=== PATIENT | female | born 1955 | race Caucasian/White ===

== ENCOUNTER → 2017-10-24 | Day surgery (SDC) | payer OTHER ==
[2017-10-11 09:37] VITALS: BMI 29.0
--- NOTE | 2017-10-11 10:15 | PAT Medication Instructions ---
Service Date Oct 11, 2017. Current Home Medication List Aspirin (Aspirin Ec), 81 MG PO QAM Baclofen (Lioresal), 10 MG PO UD PRN for PRN Calcium Carbonate-Vitamin D (Calcium + D3 600-200 mg-Unit), Unknown Dose PO BID Clopidogrel (Plavix), 75 MG PO QAM Cyanocobalamin (B12), 1 TAB PO QAM Docusate Sodium (Stool Softener), 50 MG PO HS Famotidine (Pepcid), 20 MG PO UD PRN for PRN Fish Oil (Hiko-3), 1 CAP PO BID Melatonin (Melatonin Maximum Strengt), 10 MG PO HS Multivitamin (Multivitamin), 1 TAB PO QAM Pantoprazole (Protonix), 40 MG PO QAM Polyethylene Glycol 3350 (Miralax), 17 GM PO QAM Pravastatin (Pravachol ), 20 MG PO QDD Risedronate Sodium (Atelvia), 1 TAB PO WK Sertraline (Zoloft), 100 MG PO HS Tramadol (Ultram), 1 TAB PO UD PRN for Pain Medication Instructions For Your Scheduled Surgery -Follow your instructions from your fish fryer and surgeon for (OK to hold x 7 days per cardio, last dose Monday 10/16): Aspirin (Aspirin Ec), 81 MG PO QAM Clopidogrel (Plavix), 75 MG PO QAM -Continue as directed: Risedronate Sodium (Atelvia), 1 TAB PO WK - Hold the following medications 2 weeks prior to surgery: Fish Oil (Hiko-3), 1 CAP PO BID - Hold the following medications the morning of surgery: Baclofen (Lioresal), 10 MG PO UD PRN for PRN Calcium Carbonate-Vitamin D (Calcium + D3 600-200 mg-Unit), Unknown Dose PO BID Cyanocobalamin (B12), 1 TAB PO QAM Multivitamin (Multivitamin), 1 TAB PO QAM Polyethylene Glycol 3350 (Miralax), 17 GM PO QAM - Take the following medications the morning of surgery with a sip of water: Famotidine (Pepcid), 20 MG PO UD PRN for PRN (if needed) Pantoprazole (Protonix), 40 MG PO QAM Tramadol (Ultram), 1 TAB PO UD PRN for Pain (if needed, can be taken up to four hours before surgery) - Take the following medications as scheduled the night before surgery: Baclofen (Lioresal), 10 MG PO UD PRN for PRN (if needed) Calcium Carbonate-Vitamin D (Calcium + D3 600-200 mg-Unit), Unknown Dose PO BID Docusate Sodium (Stool Softener), 50 MG PO HS Famotidine (Pepcid), 20 MG PO UD PRN for PRN (if needed) Melatonin (Melatonin Maximum Strengt), 10 MG PO HS Pravastatin (Pravachol ), 20 MG PO QDD Sertraline (Zoloft), 100 MG PO HS Tramadol (Ultram), 1 TAB PO UD PRN for Pain (if needed) If you have any questions please call us at [phone] or [phone] or [phone]
--- NOTE | 2017-10-11 10:51 | DIAGNOSTIC IMAGING REPORT ---
CHEST 2 VIEWS ROUTINE CLINICAL HISTORY: 62 years-old Female presenting with preoperative assessment. TECHNIQUE: PA and lateral views of the chest were obtained. COMPARISON: None. FINDINGS: Atherosclerosis of the aortic arch. Cardiac silhouette normal in size. Lungs and pleural spaces clear. Degenerative changes of the thoracic spine. Mild anterior wedging deformity of one of the lower thoracic and one of the upper lumbar vertebral bodies. Exaggerated thoracic kyphosis. Upper abdomen normal. IMPRESSION: 1. No acute cardiopulmonary disease. 2. Age-indeterminate compression deformities of one of the lower thoracic and one of the upper lumbar vertebral bodies, which raises concern for underlying osteopenia. Electronically signed by: Leroy Peck M.D. 10/11/2017 10:50 AM Dictated Date/Time: 10/11/2017 10:48 AM
[2017-10-11 11:30] LABS: BASO % 0.4 %; BASO ABS # 0.02 K/uL (0-0.2); EOS % 1.2 %; EOS ABS # 0.06 K/uL (0-0.5); HEMATOCRIT 41.9 % (37-47); HEMOGLOBIN 13.8 g/dL (12.0-16.0); IG# 0.01 K/uL (0.00-0.02); LYMPH % 34.8 %; LYMPH ABS # 1.77 K/uL (1.2-3.4); MEAN CELL VOLUME 91.7 fL (80-100); MEAN CORPUSCULAR HEMOGLOBIN 30.2 pg (25-34); MEAN CORPUSCULAR HGB CONC 32.9 g/dl (32-36); MEAN PLATELET VOLUME 11.2 fL (7.4-10.4); MONO % 7.7 %; MONO ABS # 0.39 K/uL (0.11-0.59); NEUT % 55.7 %; NEUT ABS # 2.83 K/uL (1.4-6.5); PLATELET COUNT 187 K/uL (130-400); RED CELL DISTRIBUTION WIDTH CV 12.6 % (11.5-14.5); RED CELL DISTRIBUTION WIDTH SD 42.4 fL (36.4-46.3); WHITE BLOOD COUNT 5.08 K/uL (4.8-10.8)
[2017-10-11 11:35] LABS: CALCIUM 9.3 mg/dl (8.5-10.1); CREATININE 0.76 mg/dl (0.60-1.20); POTASSIUM 3.9 mmol/L (3.5-5.1)
[~2017-10-24] VITALS: Ht 162.6 cm; Wt 77.2 kg
[~2017-10-24] MED LIST: ACETAMINOPHEN 325 MG TAB PO PRN; ACETAMINOPHEN 500 MG TAB PO SCH; ASPI81TA28 PO; ATROPINE SULFATE 0.1 MG/ML 5ML SYR IV PRN; BACL10TA PO; BUPIVACAINE/EPINEPHRINE 0.5% MPF 1:200,000 30 ML VIAL ONE; CALC-388 PO; CEFAZOLIN 1000MG IV PUSH 7.5 ML IV SCH; CHECK SCOPOLAMINE PATCH PLACEMENT SCH; CLOP1TAB15 PO; CONRAY 60% 50 ML VIAL ONE; CYAN100073 PO; CeleBREX 200 MG CAP PO SCH; DEXAMETHASONE SOD INJ 4 MG/ML VIAL ONE; DOCU100C PO; EpHEDrine SULFATE INJ 50 MG/ML AMP IV PRN; FAMO20TA11 PO; FENTANYL CITRATE INJ 50 MCG/1 ML 2 ML VIAL IV PRN; FENTANYL CITRATE INJ 50 MCG/1 ML 2 ML VIAL ONE; GABAPENTIN 600 MG PO SCH; GLYCOPYRROLATE INJ 0.2 MG/ML VIAL ONE; HYDROmorphone INJ 1 MG/ML SYR IV PRN; HYDROmorphone INJ 2 MG/ML SYR/VIAL ONE; KETOROLAC TROMETHAMINE 30 MG/ML VIAL IV. PRN; LACTATED RINGER'S 1000ML 1,000 ML IV SCH; LIDOCAINE HCL 2% 2 ML VIAL (20MG/ML) ONE; MELATAB2 PO; MIDAZOLAM HCL 1 MG/ML 2ML VIAL ONE; MULT-506 PO; NEOSTIGMINE METHYLSULFATE 1 MG/ML 10ML VIAL ONE; OMEG10007 PO; ONDANSETRON INJ 2 MG/ML 2 ML VIAL IV PRN; ONDANSETRON INJ 2 MG/ML 2 ML VIAL ONE; PANT40TA PO; PHENYLEPHRINE 100MCG/ML 5ML SYR IV PRN; POLY335019 PO; PRAV20TA PO; PROPOFOL IV EMULSION 10 MG/ML 20 ML VIAL IV ONE; RISETAB3 PO; ROCURONIUM BROMIDE 10 MG/ML 5 ML VIAL IV ONE; SCOPOLAMINE 1.5 MG TDSY TD ONE; SCOPOLAMINE 1.5 MG TDSY TD SCH; SERT-234 PO; TRAM-10 PO
[2017-10-24 11:10] VITALS: BP 168/83; PULSE 62; TEMP 36.7; O2SAT 99; Ht 162.6 cm; Wt 77.2 kg
--- NOTE | 2017-10-24 13:15 | History & Physical Bridge Note ---
H&P Re-Evaluation Bridge Note: I have examined the patient, reviewed the History & Physical and in the interval since the performance of the History & Physical I have noted the following changes of clinical significance: No changes noted
--- NOTE | 2017-10-24 13:16 | History and Physical ---
History & Physical Date Oct 24, 2017. Chief Complaint Back pain History of Present Illness The patient is a 62 year old female with complaints of back pain Additional History Hepatic Disease: No Endocrine Disorder: No Kidney Disease: No Hypertension: No Heart Disease: No Bleeding Tendencies: No Infectious Diseases: No Allergies Coded Allergies: Codeine (Verified Adverse Reaction, Unknown, VOMIT, 10/24/17) Hydrocodone (Verified Adverse Reaction, Unknown, VOMIT, 10/24/17) Oxycodone (Verified Adverse Reaction, Unknown, VOMIT, 10/24/17) Home Medications Scheduled Aspirin (Aspirin Ec), 81 MG PO QAM Calcium Carbonate-Vitamin D (Calcium + D3 600-200 mg-Unit), Unknown Dose PO BID Clopidogrel (Plavix), 75 MG PO QAM Cyanocobalamin (B12), 1 TAB PO QAM Docusate Sodium (Stool Softener), 50 MG PO HS Fish Oil ([place]-3), 1 CAP PO BID Melatonin (Melatonin Maximum Strengt), 10 MG PO HS Multivitamin (Multivitamin), 1 TAB PO QAM Pantoprazole (Protonix), 40 MG PO QAM Polyethylene Glycol 3350 (Miralax), 17 GM PO QAM Pravastatin (Pravachol ), 20 MG PO QPM Risedronate Sodium (Atelvia), 1 TAB PO WK Sertraline (Zoloft), 100 MG PO HS Scheduled PRN Baclofen (Lioresal), 10 MG PO UD PRN for PRN Famotidine (Pepcid), 20 MG PO UD PRN for PRN Tramadol (Ultram), 1 TAB PO UD PRN for Pain Physical Examination Skin: warm/dry, no rash Eyes: normal inspection, EOMI, sclerae normal ENT: normal ENT inspection, pharynx normal Head: normocephalic, atraumatic Neck: supple, no adenopathy, trachea midline Respiratory/Chest: lungs clear, normal breath sounds, no respiratory distress Cardiovascular: regular rate, rhythm, no edema, no murmur Abdomen / GI: normal bowel sounds, non tender Back: normal inspection Extremities: normal inspection, normal range of motion Neurologic/Psych: no motor/sensory deficits, alert, normal reflexes, oriented x 3 Diagnosis L1 compression fracture Plan of Treatment Biopsy with kyphoplasty L1
--- NOTE | 2017-10-24 14:27 | [facility] Operative Report ---
Operative Report Operative Date Oct 24, 2017. Pre-Operative Diagnosis L1 Compression Fracture Post-Operative Diagnosis Same Procedure(s) Performed 1. Kyphoplasty L1 vertebral body. #2 biopsy of L1 vertebral body. Surgeon Dr. Mckeon Stamp Pad Finisher Surgeon(s) none Estimated Blood Loss 2 cc Specimens A: L1 vertebral body Description of Procedure Patient was met with preoperatively case discussed all questions addressed. After informed consent obtained patient was taken to the operative suite underwent intubation and placed in a prone position on the Michael table with chest pad and hip bolsters. All bony prominences were well-padded eyes inspected to ensure no external pressure placed upon them. This point the thoracolumbar spine was prepped and draped in the normal sterile fashion with the assistance of fluoroscopy in AP and lateral planes identified the L1 vertebral body. 2 small incisions were placed just lateral to the L1 vertebral pedicles. I passed to Kyphon working cannulas by way of a transpedicular approach into the L1 vertebral body tear. 2 core biopsies were obtained. I then inserted 20 mm Kyphon balloons and sequentially inflated them. These were subsequently removed and approximately 3 cc of Kyphon cement injected with fluoroscopic visualization. It demonstrated excellent interdigitation to the bone. After this complete working cannulas were removed the small incisions closed with subcutaneous Monocryl and a sterile dressing placed. Patient will continue PACU stable condition. I attest to the content of the Intraoperative Record and any orders documented therein. Any exceptions are noted below.
--- NOTE | 2017-10-24 14:30 | Discharge Instructions ---
Discharge Instructions Date of Service Oct 24, 2017. Admission Reason for Admission: Wedge Compression Fracture Of 1ST Lumbar Vertebra Discharge Discharge Diagnosis / Problem: compression fx Discharge Goals Goal(s): Decrease discomfort Activity Recommendations Activity Limitations: as noted below Lifting Limitations: no more than 5 pounds Exercise/Sports Limitations: gradually increase as tolerated Shower/Bathe: tomorrow Driving or Machine Use: resume 3 days after discharge . Current Hospital Diet Patient's current hospital diet: Discharge Diet Recommended Diet: Regular Diet Procedures Procedures Performed: 1. Kyphoplasty L1 vertebral body. #2 biopsy of L1 vertebral body. Pending Studies Studies pending at discharge: no Medical Emergencies . Who to Call and When: Medical Emergencies: If at any time you feel your situation is an emergency, please call 911 immediately. . Non-Emergent Contact Non-Emergency issues call your: Primary Care Provider . "Provider Documentation" section prepared by Sim Mckeon. .
--- NOTE | 2017-10-24 14:40 | DIAGNOSTIC IMAGING REPORT ---
LUMBAR SPINE 2 OR 3 VIEW CLINICAL HISTORY: 62 years-old Female presenting with L1 KYPHOPLASTY. TECHNIQUE: 2 fluoroscopic image(s) recorded as part of an intraoperative procedure. COMPARISON: None. FINDINGS/IMPRESSION: Anterior compression deformity of L1. Radiodense material consistent with kyphoplasty changes. No gross retropulsion of fracture fragments. Please see surgical report for further details. Fluoroscopy dosage (mGy): 109.91. Fluoroscopy time: 113.4 seconds. Number of fluoroscopic spot images: 0. Electronically signed by: Leroy Peck M.D. 10/24/2017 2:38 PM Dictated Date/Time: 10/24/2017 2:37 PM
--- NOTE | 2017-10-24 15:06 | Anesthesiology Progress Note ---
Anesthesia Post Op Note Date & Time Oct 24, 2017 at 15:06 Vital Signs Pain Intensity: 0 Vital Signs Past 12 Hours Date Time Temp Pulse Resp B/P (MAP) Pulse Ox O2 Delivery O2 Flow Rate FiO2 10/24/17 14:55 78 18 145/78 100 Oxymask 10 10/24/17 14:45 80 18 149/73 100 Oxymask 10 10/24/17 14:38 36.4 90 18 159/79 100 Oxymask 10 10/24/17 11:10 36.7 62 18 168/83 (111) 99 Room Air Notes Mental Status: alert / awake / arousable, participated in evaluation Pt Amnestic to Procedure: Yes Nausea / Vomiting: adequately controlled Pain: adequately controlled Airway Patency, RR, SpO2: stable & adequate BP & HR: stable & adequate Hydration State: stable & adequate Anesthetic Complications: no major complications apparent
[2017-10-24 15:20] VITALS: BP 131/66; PULSE 81; TEMP 36.7; O2SAT 92
[2017-10-24 15:50] VITALS: BP 127/61; PULSE 77; TEMP 37.1; O2SAT 92
[2017-10-24 16:20] VITALS: BP 136/63; PULSE 71; TEMP 36.8; O2SAT 93
== END | disposition home or self-care (01) ==
LOC: C.ACU 10:51
PROVIDERS: ATTEND Orthopaedic Surgery Orthopaedic Surgery of the Spine
DX: S32.010A Wedge compression fracture of first lumbar vertebra, initial encounter for closed fracture (principal); M54.5 Low back pain; Z88.5 Allergy status to narcotic agent; Z79.82 Long term (current) use of aspirin; Z79.02 Long term (current) use of antithrombotics/antiplatelets; Z79.899 Other long term (current) drug therapy; X58.XXXA Exposure to other specified factors, initial encounter; Z90.49 Acquired absence of other specified parts of digestive tract; Z87.81 Personal history of (healed) traumatic fracture; E78.5 Hyperlipidemia, unspecified; K21.9 Gastro-esophageal reflux disease without esophagitis; Z86.73 Personal history of transient ischemic attack (TIA), and cerebral infarction without residual deficits; M41.9 Scoliosis, unspecified; Q60.0 Renal agenesis, unilateral; F41.9 Anxiety disorder, unspecified; F32.9 Major depressive disorder, single episode, unspecified

== ENCOUNTER → 2018-02-28 | Day surgery (SDC) | payer OTHER ==
[2018-02-27 08:11] VITALS: BMI 31.0
[~2018-02-28] VITALS: Ht 162.6 cm; Wt 82.3 kg
[~2018-02-28] MED LIST changes: -ATROPINE SULFATE 0.1 MG/ML 5ML SYR IV PRN; +BACITRACIN 50000 UNIT VIAL ONE; -BACL10TA PO; -CEFAZOLIN 1000MG IV PUSH 7.5 ML IV SCH; +CEFAZOLIN 2000MG IV PUSH 15 ML IV SCH; -CHECK SCOPOLAMINE PATCH PLACEMENT SCH; -CONRAY 60% 50 ML VIAL ONE; +CYCL10TA7 PO; +CYM/30 PO; +DEXAMETHASONE 4 MG TAB PO SCH; +ESMOLOL HCL 10 MG/ML 10 ML VIAL ONE; +EpHEDrine SULFATE 50MG/5ML SYR ONE; -EpHEDrine SULFATE INJ 50 MG/ML AMP IV PRN; -FENTANYL CITRATE INJ 50 MCG/1 ML 2 ML VIAL IV PRN; +KETOROLAC TROMETHAMINE 30 MG/ML VIAL ONE; +LARYING-O-JET KIT (LTA) ONE; +METH-445 PO; -ONDANSETRON INJ 2 MG/ML 2 ML VIAL IV PRN; -PHENYLEPHRINE 100MCG/ML 5ML SYR IV PRN; -PROPOFOL IV EMULSION 10 MG/ML 20 ML VIAL IV ONE; +PROPOFOL IV EMULSION 10 MG/ML 20 ML VIAL ONE; +RANITIDINE HCL 25 MG/ML INJ ONE; -ROCURONIUM BROMIDE 10 MG/ML 5 ML VIAL IV ONE; +ROCURONIUM BROMIDE 10 MG/ML 5 ML VIAL ONE; -SCOPOLAMINE 1.5 MG TDSY TD SCH; -SERT-234 PO
[2018-02-28 08:31] VITALS: BP 169/91; PULSE 63; TEMP 36.6; O2SAT 99; Ht 162.6 cm; Wt 82.3 kg
[2018-02-28 08:34] LABS: HEMATOCRIT 41.1 % (37-47); HEMOGLOBIN 14.3 g/dL (12.0-16.0); MEAN CELL VOLUME 91.7 fL (80-100); MEAN CORPUSCULAR HEMOGLOBIN 31.9 pg (25-34); MEAN PLATELET VOLUME 10.3 fL (7.4-10.4); PLATELET COUNT 154 K/uL (130-400); RED CELL DISTRIBUTION WIDTH CV 12.6 % (11.5-14.5); RED CELL DISTRIBUTION WIDTH SD 42.4 fL (36.4-46.3); WHITE BLOOD COUNT 4.84 K/uL (4.8-10.8)
[2018-02-28 08:37] LABS: MEAN CORPUSCULAR HGB CONC 34.8 g/dl (32-36)
[2018-02-28 08:43] LABS: PTT PATIENT 25.7 SECONDS (21.0-31.0)
--- NOTE | 2018-02-28 10:29 | History and Physical ---
History & Physical Date Feb 28, 2018. Chief Complaint Right SI joint pain History of Present Illness The patient is a 62 year old female with complaints of right SI joint pain Additional History Hepatic Disease: No Endocrine Disorder: No Kidney Disease: No Hypertension: No Heart Disease: No Bleeding Tendencies: No Infectious Diseases: No Other: Atrial fibrillation, depression, heart murmur, hypercholesterolemia, history of stroke, Allergies Coded Allergies: Codeine (Verified Adverse Reaction, Unknown, VOMIT, 02/28/18) Hydrocodone (Verified Adverse Reaction, Unknown, VOMIT, 02/28/18) Oxycodone (Verified Adverse Reaction, Unknown, VOMIT, 02/28/18) Home Medications Scheduled Aspirin (Aspirin Ec), 81 MG PO QAM Calcium Carbonate-Vitamin D (Calcium + D3 600-200 mg-Unit), Unknown Dose PO BID Clopidogrel (Plavix), 75 MG PO QAM Cyanocobalamin (B12), 1 TAB PO QAM Cyclobenzaprine HCl (Cyclobenzaprine HCl), 1 TAB PO QPM Docusate Sodium (Stool Softener), 50 MG PO HS Duloxetine HCl (Cymbalta), 1 CAP PO QAM Fish Oil ([place]-3), 1 CAP PO BID Melatonin (Melatonin Maximum Strengt), 10 MG PO HS Methocarbamol (Robaxin), 500 MG PO QAM Multivitamin (Multivitamin), 1 TAB PO QAM Pantoprazole (Protonix), 40 MG PO QAM Polyethylene Glycol 3350 (Miralax), 17 GM PO QAM Pravastatin (Pravachol ), 20 MG PO QPM Risedronate Sodium (Atelvia), 1 TAB PO WK Scheduled PRN Famotidine (Pepcid), 20 MG PO UD PRN for PRN Physical Examination Skin: warm/dry, no rash Eyes: normal inspection, EOMI, sclerae normal ENT: normal ENT inspection, pharynx normal Head: normocephalic, atraumatic Neck: supple, no adenopathy, trachea midline Respiratory/Chest: lungs clear, normal breath sounds, no respiratory distress Cardiovascular: regular rate, rhythm, no edema, no murmur Abdomen / GI: normal bowel sounds, non tender Back: normal inspection Extremities: normal inspection, normal range of motion Neurologic/Psych: no motor/sensory deficits, alert, normal reflexes, oriented x 3 Diagnosis Right sacroiliitis Plan of Treatment Right SI joint fusion
--- NOTE | 2018-02-28 12:19 | [facility] Operative Report ---
Operative Report Operative Date Feb 28, 2018. Pre-Operative Diagnosis Right Sacroilitis Post-Operative Diagnosis Right Sacroilitis Procedure(s) Performed Right SI joint fusion Surgeon Dr. Mckeon Manager Business Surgeon(s) [place] Cl[place] Estimated Blood Loss 25 Specimens none per surgeon Description of Procedure Patient was met with preoperatively case discussed all questions addressed. After informed consent obtained patient was taken to the operative suite underwent intubation and placed in the prone position on the Michael table the chest pad and hip bolsters. The right upper buttock was then prepped and draped in normal sterile fashion. With the assistance of fluoroscopy identified the sacrum and lateral AP and coronal planes. Approximate 3 cm incision was made along the right upper buttock in line with the posterior slope of the sacrum. I then placed a guidewire across the superior portion of the sacrum with the assistance of fluoroscopy in all planes. Measured to be 40 mm in depth. I then drilled with a 10 mm drill over the guidewire. The shavings were used to pack a 40 mm ALICEA-coated slotted screw. This is been placed over the guidewire in successfully across the proximal portion of the right SI joint. Using outrigger guide I placed a distal wire 10 mm to the initial screw. Again I drilled over the wire with a 10 mm drill bit using shavings and DBM to fill a 35 mm ALICEA-coated slotted screw to place a second screw distal to the initial screw. I did attempt a third screw but we are unable to get adequate fixation due to the size of the sacrum subsequently aborted a third screw. Verified position with fluoroscopy. Incision was then copiously irrigated and closed with subcutaneous Vicryl 4 Monocryl for fashion closure. The patient was then awakened and taken to PACU in stable condition. Please note Jennifer Roberson was present throughout the entire procedure involved the patient positioning complex portions of the surgery and final skin closure. I attest to the content of the Intraoperative Record and any orders documented therein. Any exceptions are noted below.
--- NOTE | 2018-02-28 12:22 | Discharge Instructions ---
Discharge Instructions Date of Service Feb 28, 2018. Admission Reason for Admission: Si Joint Dysfunction Discharge Discharge Diagnosis / Problem: Right sacroiliitis Discharge Goals Goal(s): Decrease discomfort Activity Recommendations Activity Limitations: as noted below Lifting Limitations: no more than 5 pounds Exercise/Sports Limitations: none Shower/Bathe: may shower/bathe in 3 days Driving or Machine Use: resume 3 days after discharge Weightbearing Status: Right toe touch Patient to use walker when ambulating with toe-touch weightbearing to the right lower extremity. . Instructions / Follow-Up Instructions / Follow-Up Patient will follow-up in 2 weeks in our office. Current Hospital Diet Patient's current hospital diet: Discharge Diet Recommended Diet: Regular Diet Procedures Procedures Performed: Right SI joint fusion Pending Studies Studies pending at discharge: no Medical Emergencies . Who to Call and When: Medical Emergencies: If at any time you feel your situation is an emergency, please call 911 immediately. . Non-Emergent Contact Non-Emergency issues call your: Primary Care Provider . "Provider Documentation" section prepared by Sim Mckeon. .
--- NOTE | 2018-02-28 12:55 | DIAGNOSTIC IMAGING REPORT ---
R SACRUM CLINICAL HISTORY: RT SACROILIAC JOINT FUSION TECHNIQUE: Image intensifier COMPARISON STUDY: None FINDINGS: 160 seconds of fluoroscopy time. 4 images. IMPRESSION: Intraoperative fluoroscopy for a sacroiliac joint fusion. The above report was generated using voice recognition software. It may contain grammatical, syntax or spelling errors. Electronically signed by: Avelino Albert M.D. 02/28/2018 12:53 PM Dictated Date/Time: 02/28/2018 12:53 PM
--- NOTE | 2018-02-28 13:11 | Anesthesiology Progress Note ---
Anesthesia Post Op Note Date & Time Feb 28, 2018 at 13:11 Vital Signs Pain Intensity: 0 Vital Signs Past 12 Hours Date Time Temp Pulse Resp B/P (MAP) Pulse Ox O2 Delivery O2 Flow Rate FiO2 02/28/18 13:00 89 23 122/60 93 Room Air 02/28/18 12:50 88 21 138/70 100 Oxymask 10 02/28/18 12:40 99 21 125/83 100 Oxymask 02/28/18 12:34 36.5 95 14 132/77 99 Oxymask 10 02/28/18 08:31 36.6 63 20 169/91 (117) 99 Room Air Notes Mental Status: alert / awake / arousable, participated in evaluation Pt Amnestic to Procedure: Yes Nausea / Vomiting: adequately controlled Pain: adequately controlled Airway Patency, RR, SpO2: stable & adequate BP & HR: stable & adequate Hydration State: stable & adequate Anesthetic Complications: no major complications apparent
[2018-02-28 13:20] VITALS: BP 113/60; PULSE 90; TEMP 36.7; O2SAT 96
[2018-02-28 13:50] VITALS: BP 123/62; PULSE 82; TEMP 36.7; O2SAT 92
[2018-02-28 14:20] VITALS: BP 131/64; PULSE 89; TEMP 36.7; O2SAT 94
== END | disposition home or self-care (01) ==
LOC: C.ACU 07:50
PROVIDERS: ATTEND Orthopaedic Surgery Orthopaedic Surgery of the Spine
DX: M46.1 Sacroiliitis, not elsewhere classified (principal); I48.91 Unspecified atrial fibrillation; F32.9 Major depressive disorder, single episode, unspecified; E78.00 Pure hypercholesterolemia, unspecified; Z88.5 Allergy status to narcotic agent; Z86.73 Personal history of transient ischemic attack (TIA), and cerebral infarction without residual deficits; Z79.82 Long term (current) use of aspirin